=== PATIENT | female | born 1990 | race African-American/Black ===

== ENCOUNTER 2016-05-07 21:58 | Emergency (ER) | payer OTHER ==
[~2016-05-07] VITALS: Ht 165.1 cm; Wt 81.7 kg
--- NOTE | ~2016-05-07 | EKG ---
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 05/08/16 0746 2207 06 Darrell Sykes MD, FACC /EPI
[~2016-05-07 21:58] MED LIST: ACCUNEB SO1.25 MG/1 INH; AMOXICILLIN 50500 M1 PO; BIRTH CONTROL; DIFLUCAN150 MG PO; DIFLUCAN200 MG PO; IBUPROFEN 600600 M1 PO; IBUPROFEN 800800 M1 PO; KEFLEX500 MG PO; NAPROSYN500 MG PO; NOHOMEMEDICATIONS; NORCO 5-325 TA1 EACH PO; PAXIL10 MG; PENICILLIN V P500 MG PO; PHENTERMINE H37.5 M1 PO; PREDNISONE 20 M20 MG PO; VENTOLIN HFA 1818 GM; VENTOLIN17 GM INH; ZPAK PO
[2016-05-07 22:24] LABS: ABSOLUTE NEUTROPHILS 5.9 thou/uL (1.4-8.2); BASOPHILS 0.7 % (0.0-2.0); EOSINOPHILS 1.5 % (0.0-3.0); HEMATOCRIT 37.6 % (37.0-47.0); HEMOGLOBIN 11.9 gm/dL (12.0-15.0); LYMPHOCYTES 40.7 % (24.0-44.0); MCHC 31.7 % (28.0-37.0); MCV 75.9 fL (80.0-100.0); MONOCYTES 5.8 % (1.0-8.0); PLATELET COUNT 340 thou/uL (150-400); POLYS 51.3 % (36.0-66.0); RBC 4.95 mil/uL (4.20-5.00); RDW 16.3 % (10.5-14.5); WBC 11.6 thou/uL (4.0-11.0)
[2016-05-07 22:26] LABS: MANUAL DIFF NO
[2016-05-07 22:35] LABS: ANION GAP 8 mmol/L (7-16); BUN 15 mg/dL (7-18); CALCIUM 8.8 mg/dL (8.5-10.1); CHLORIDE 103 mmol/L (98-107); CO2 27 mmol/L (21-32); GLUCOSE 106 mg/dL (70-99); POTASSIUM 3.7 mmol/L (3.5-5.1); SODIUM 138 mmol/L (136-145)
[2016-05-07 22:42] LABS: APTT 29.1 Seconds (24.5-32.8); PROTIME 10.6 Seconds (9.3-11.4)
[2016-05-07 22:52] LABS: ALBUMIN 3.8 g/dL (3.4-5.0); ALKALINE PHOSPHATASE 83 U/L (46-116); NT-PRO BRAIN NAT PEPTIDE 22 pg/mL (<300); SGOT 15 U/L (15-37); SGPT 29 U/L (30-65); TOTAL BILIRUBIN 0.3 mg/dL (<0.1-1.0); TOTAL PROTEIN 7.9 g/dL (6.4-8.2); TROPONIN-I < 0.04 ng/mL (<0.04-0.07)
[2016-05-07 23:40] VITALS: BP 110/64
[2016-07-01] MEDS ORDERED: ALLEGRA ALLERG180 MG PO (13:17)
[2016-07-01] MEDS ORDERED: FLONASE 0.05%50 MCG NASAL (13:17)
== END 2016-05-07 23:40 | disposition home or self-care (01) ==
LOC: ER 21:58
PROVIDERS: Emergency Medicine
DX: R07.9 Chest pain, unspecified (principal); R51 Headache

== ENCOUNTER 2017-01-07 14:04 | Emergency (ER) | payer OTHER ==
[~2017-01-07] VITALS: Ht 165.1 cm; Wt 79.4 kg
--- NOTE | ~2017-01-07 | EKG ---
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
[~2017-01-07 14:04] MED LIST changes: +ALLEGRA ALLERG180 MG PO; +FLONASE 0.05%50 MCG NASAL
[2017-01-07] MEDS ORDERED: VENTOLIN HFA 1818 GM INH (15:46)
[2017-01-07 16:04] VITALS: BP 118/85
== END 2017-01-07 16:07 | disposition home or self-care (01) ==
LOC: ER 14:04
DX: R00.2 Palpitations (principal); J45.909 Unspecified asthma, uncomplicated; Z98.51 Tubal ligation status

== ENCOUNTER 2017-01-19 22:12 | Emergency (ER) | payer OTHER ==
[~2017-01-19] VITALS: Ht 165.1 cm; Wt 81.7 kg
--- NOTE | ~2017-01-19 | EKG ---
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
[~2017-01-19 22:12] MED LIST changes: +VENTOLIN HFA 1818 GM INH
[2017-01-20] MEDS ORDERED: TRAMADOL 50 MG50 MG PO (00:03)
[2017-01-20] MEDS ORDERED: NAPROSYN500 MG PO (00:03)
[2017-01-20 00:28] VITALS: BP 120/81
== END 2017-01-20 00:34 | disposition home or self-care (01) ==
LOC: ER 22:12
DX: S23.41XA Sprain of ribs, initial encounter (principal); S43.62XA Sprain of left sternoclavicular joint, initial encounter; J45.909 Unspecified asthma, uncomplicated; F10.99 Alcohol use, unspecified with unspecified alcohol-induced disorder; W18.39XA Other fall on same level, initial encounter; Y93.89 Activity, other specified; Y92.89 Other specified places as the place of occurrence of the external cause; Y99.8 Other external cause status

== ENCOUNTER 2017-04-18 20:47 | Emergency (ER) | payer OTHER ==
[~2017-04-18] VITALS: Ht 167.6 cm; Wt 81.7 kg
[~2017-04-18 20:47] MED LIST changes: +TRAMADOL 50 MG50 MG PO
[2017-04-18 21:21] LABS: URINE BILIRUBIN NEGATIVE (Negative); URINE BLOOD 3+ (Negative); URINE CLARITY CLEAR; URINE COLOR YELLOW; URINE GLUCOSE-RANDOM* NEGATIVE (Negative); URINE KETONES NEGATIVE (Negative); URINE LEUKOCYTES NEGATIVE (Negative); URINE NITRITE NEGATIVE (Negative); URINE PROTEIN (DIPSTICK) NEGATIVE (Negative); URINE UROBILINOGEN 0.2 E.U./dl (0.2-1.0)
[2017-04-18 21:37] LABS: BACTERIA 1-9 Few /HPF (None Seen); CASTS None Seen /LPF (None Seen); CRYSTALS None Seen /LPF (None Seen); MUCUS 0-3 Light strn/LPF (None Seen); SQUAMOUS 4-10 Moderate /LPF (0-3); URINE WBC 0-5 Rare /HPF (0-5)
[2017-04-18 21:46] LABS: ABSOLUTE NEUTROPHILS 6.1 thou/uL (1.4-8.2); EOSINOPHILS 0.9 % (0.0-3.0); HEMATOCRIT 35.8 % (37.0-47.0); HEMOGLOBIN 11.4 gm/dL (12.0-15.0); MCH 24.4 pg (26.0-34.0); MCHC 31.7 g/dL (28.0-37.0); MONOCYTES 7.4 % (1.0-8.0); PLATELET COUNT 360 thou/uL (150-400); POLYS 58.7 % (36.0-66.0); RBC 4.65 mil/uL (4.20-5.00); RDW 16.8 % (10.5-14.5); WBC 10.4 thou/uL (4.0-11.0)
[2017-04-18 21:52] LABS: ANION GAP 7 mmol/L (7-16); BUN 13 mg/dL (7-18); CALCIUM 8.8 mg/dL (8.5-10.1); CHLORIDE 105 mmol/L (98-107); CO2 27 mmol/L (21-32); CREATININE 0.9 mg/dL (0.6-1.0); GLUCOSE 101 mg/dL (74-106); POTASSIUM 3.5 mmol/L (3.5-5.1); SODIUM 139 mmol/L (136-145)
[2017-04-18 21:58] LABS: ALBUMIN 3.5 g/dL (3.4-5.0); DIRECT BILIRUBIN < 0.1 mg/dL (<0.1-0.3); SGOT 19 U/L (15-37); SGPT 27 U/L (30-65); TOTAL BILIRUBIN 0.2 mg/dL (<0.1-1.0); TOTAL PROTEIN 7.6 g/dL (6.4-8.2)
[2017-12-30] MEDS ORDERED: PENICILLIN V P500 MG PO (23:46)
[2017-12-31] MEDS ORDERED: GYNE-LOTRIMIN21 GM VAG (00:03)
== END 2017-04-18 23:06 | disposition home or self-care (01) ==
LOC: ER 20:47
PROVIDERS: Nurse Practitioner
DX: R23.8 Other skin changes (principal); J45.909 Unspecified asthma, uncomplicated

== ENCOUNTER 2017-06-05 15:59 | Emergency (ER) | payer OTHER ==
[~2017-06-05] VITALS: Ht 167.6 cm; Wt 81.7 kg
[2017-06-05] MEDS ORDERED: PREDNISONE 20 M20 MG PO (16:38)
[2017-06-05] MEDS ORDERED: CLARITIN-D 121 EAC1 PO (16:38)
[2017-12-30] MEDS ORDERED: PENICILLIN V P500 MG PO (23:46)
[2017-12-31] MEDS ORDERED: GYNE-LOTRIMIN21 GM VAG (00:03)
== END 2017-06-05 16:47 | disposition home or self-care (01) ==
LOC: ER 15:59
DX: J06.9 Acute upper respiratory infection, unspecified (principal); J34.89 Other specified disorders of nose and nasal sinuses; J45.909 Unspecified asthma, uncomplicated

== ENCOUNTER 2017-09-01 09:48 | Emergency (ER) | payer OTHER ==
[~2017-09-01] VITALS: Ht 167.6 cm; Wt 83.9 kg
--- NOTE | ~2017-09-01 | EKG ---
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
[~2017-09-01 09:48] MED LIST changes: +CLARITIN-D 121 EAC1 PO
[2017-09-01] MEDS ORDERED: MTERYTI COMBO1 EACH PO (09:56)
[2017-09-01 10:28] LABS: HEMATOCRIT 34.8 % (37.0-47.0); HEMOGLOBIN 11.2 gm/dL (12.0-15.0); MCH 24.3 pg (26.0-34.0); MCHC 32.2 g/dL (28.0-37.0); MCV 75.3 fL (80.0-100.0); RBC 4.62 mil/uL (4.20-5.00); RDW 17.1 % (10.5-14.5); WBC 12.1 thou/uL (4.0-11.0)
[2017-09-01 10:38] LABS: CREATININE 0.8 mg/dL (0.6-1.0); POTASSIUM 3.4 mmol/L (3.5-5.1)
[2017-09-01 10:43] LABS: ALBUMIN 3.2 g/dL (3.4-5.0); TOTAL BILIRUBIN 0.4 mg/dL (<0.1-1.0)
[2017-09-01 14:38] VITALS: BP 138/78
== END 2017-09-01 14:39 | disposition home or self-care (01) ==
LOC: ER 09:48
PROVIDERS: Emergency Medicine
DX: O99.511 Diseases of the respiratory system complicating pregnancy, first trimester (principal); Z3A.10 10 weeks gestation of pregnancy

== ENCOUNTER 2017-10-30 13:35 | Emergency (ER) | payer OTHER ==
[~2017-10-30] VITALS: Ht 165.1 cm; Wt 86.2 kg
[2017-10-30 13:35] VITALS: BP 114/69
[~2017-10-30 13:35] MED LIST changes: +MTERYTI COMBO1 EACH PO
== END 2017-10-30 15:06 | disposition home or self-care (01) ==
LOC: ER 13:35
DX: O26.892 Other specified pregnancy related conditions, second trimester (principal); Z3A.18 18 weeks gestation of pregnancy

== ENCOUNTER 2017-11-04 12:06 | Emergency (ER) | payer OTHER ==
[~2017-11-04] VITALS: Ht 167.6 cm; Wt 86.2 kg
[2017-11-04 12:09] VITALS: BP 127/76
[2017-11-04 12:29] LABS: URINE BILIRUBIN NEGATIVE (Negative); URINE BLOOD TRACE (Negative); URINE COLOR YELLOW; URINE GLUCOSE-RANDOM* NEGATIVE (Negative); URINE KETONES NEGATIVE (Negative); URINE NITRITE-REFLEX NEGATIVE (Negative); URINE PROTEIN (DIPSTICK) NEGATIVE (Negative)
[2017-11-04 12:30] LABS: URINE CLARITY CLOUDY; URINE LEUKOCYTES-REFLEX TRACE (Negative)
== END 2017-11-04 13:24 | disposition home or self-care (01) ==
LOC: ER 12:06
PROVIDERS: Emergency Medicine
DX: O99.712 Diseases of the skin and subcutaneous tissue complicating pregnancy, second trimester (principal); B37.2 Candidiasis of skin and nail; R31.29 Other microscopic hematuria; J45.909 Unspecified asthma, uncomplicated; Z3A.19 19 weeks gestation of pregnancy

== ENCOUNTER 2018-02-07 23:19 | Emergency (ER) | payer OTHER ==
[~2018-02-07] VITALS: Ht 165.1 cm; Wt 99.8 kg
[~2018-02-07 23:19] MED LIST changes: +GYNE-LOTRIMIN21 GM VAG
[2018-02-08] MEDS ORDERED: ACETAMINOPHEN-1 EAC1 PO (00:56)
[2018-02-08 01:41] VITALS: BP 134/91
== END 2018-02-08 01:44 | disposition home or self-care (01) ==
LOC: ER 23:19
DX: O99.89 Other specified diseases and conditions complicating pregnancy, childbirth and the puerperium (principal); M26.609 Unspecified temporomandibular joint disorder, unspecified side; J45.909 Unspecified asthma, uncomplicated; Z3A.32 32 weeks gestation of pregnancy

== ENCOUNTER 2018-06-18 07:18 | Emergency (ER) | payer OTHER ==
[~2018-06-18] VITALS: Ht 172.7 cm; Wt 79.4 kg
[~2018-06-18 07:18] MED LIST changes: +ACETAMINOPHEN-1 EAC1 PO
[2018-06-18 07:19] VITALS: BP 126/58
== END 2018-06-18 08:06 | disposition home or self-care (01) ==
LOC: ER 07:18
DX: R20.2 Paresthesia of skin (principal); R20.0 Anesthesia of skin; M25.512 Pain in left shoulder; J45.909 Unspecified asthma, uncomplicated

== ENCOUNTER 2020-01-09 17:14 | Emergency (ER) | payer OTHER ==
[~2020-01-09] VITALS: Ht 165.1 cm; Wt 90.7 kg
[2020-01-09 18:55] VITALS: BP 147/80
== END 2020-01-09 18:56 | disposition home or self-care (01) ==
LOC: ER 17:14
DX: R04.0 Epistaxis (principal); R51 Headache; R25.3 Fasciculation; J45.909 Unspecified asthma, uncomplicated

== ENCOUNTER 2020-05-20 15:56 | Emergency (ER) | payer OTHER ==
[~2020-05-20] VITALS: Ht 165.1 cm; Wt 81.7 kg
[2020-05-20 16:39] LABS: URINE BILIRUBIN NEGATIVE (Negative); URINE BLOOD 3+ (Negative); URINE CLARITY CLEAR; URINE COLOR YELLOW; URINE GLUCOSE-RANDOM* NEGATIVE (Negative); URINE KETONES NEGATIVE (Negative); URINE LEUKOCYTES-REFLEX NEGATIVE (Negative); URINE NITRITE-REFLEX NEGATIVE (Negative); URINE PROTEIN (DIPSTICK) NEGATIVE (Negative); URINE UROBILINOGEN 0.2 E.U./dl (0.2-1.0)
[2020-05-20 17:02] LABS: MUCUS 0-3 Light strn/LPF (None Seen); SQUAMOUS >10 Many /LPF (0-3); YEAST-REFLEX Present (None Seen)
[2020-05-20 17:04] LABS: BACTERIA-REFLEX 1-9 Few /HPF (None Seen); CASTS None Seen /LPF (None Seen); CRYSTALS None Seen /LPF (None Seen); URINE RBC 3-10 Few /HPF (0-2); URINE WBC-REFLEX 0-5 Rare /HPF (0-5)
[2020-05-20 18:25] LABS: ABSOLUTE NEUTROPHILS 8.7 thou/uL (1.4-8.2); BASOPHILS 0.9 % (0.0-2.0); EOSINOPHILS 0.4 % (0.0-3.0); HEMATOCRIT 31.9 % (37.0-47.0); HEMOGLOBIN 9.6 gm/dL (12.0-15.0); MCH 21.7 pg (26.0-34.0); MCHC 30.2 g/dL (28.0-37.0); MCV 71.8 fL (80.0-100.0); PLATELET COUNT 471 thou/uL (150-400); POLYS 73.7 % (36.0-66.0); RBC 4.44 mil/uL (4.20-5.00); RDW 17.4 % (10.5-14.5); WBC 11.8 thou/uL (4.0-11.0)
[2020-05-20 18:34] LABS: CALCIUM 9.1 mg/dL (8.5-10.1); CREATININE 0.9 mg/dL (0.6-1.0); POTASSIUM 3.9 mmol/L (3.5-5.1)
[2020-05-20 18:59] LABS: HYPOCHROMASIA 2+; MICROCYTES 2+
[2020-05-20 19:00] LABS: ANISOCYTOSIS 1+; OVALOCYTES FEW; TEARDROPS FEW
[2020-05-20 19:21] VITALS: BP 128/74
== END 2020-05-20 19:22 | disposition home or self-care (01) ==
LOC: ER 15:56
PROVIDERS: Emergency Medicine
DX: O20.0 Threatened abortion (principal); O99.511 Diseases of the respiratory system complicating pregnancy, first trimester; J45.909 Unspecified asthma, uncomplicated; Z3A.01 Less than 8 weeks gestation of pregnancy

== ENCOUNTER 2021-06-05 07:55 | Emergency (ER) | payer OTHER ==
[~2021-06-05] VITALS: Ht 165.1 cm; Wt 81.7 kg
[2021-06-05 07:57] VITALS: BP 129/66
== END 2021-06-05 11:40 | disposition home or self-care (01) ==
LOC: ER 07:55
DX: O20.9 Hemorrhage in early pregnancy, unspecified (principal); Z3A.01 Less than 8 weeks gestation of pregnancy; J45.909 Unspecified asthma, uncomplicated; Z98.890 Other specified postprocedural states